=== PATIENT | female | born 1965 | race African-American/Black ===

== ENCOUNTER → 2016-08-26 | Day surgery (SDC) | payer OTHER | END | disposition home or self-care (01) | LOC: FAS 06:27 | DX: Z12.11 Encounter for screening for malignant neoplasm of colon (principal); E66.9 Obesity, unspecified; Z68.35 Body mass index [BMI] 35.0-35.9, adult; Z90.710 Acquired absence of both cervix and uterus; Z98.890 Other specified postprocedural states | CPT/HCPCS: J2704 ==